=== PATIENT | female | born 1950 | race Caucasian/White ===

== ENCOUNTER 2016-11-24 19:17 | Emergency (ER) | payer BC ==
[~2016-11-24] VITALS: Ht 160 cm; Wt 90.7 kg
--- NOTE | ~2016-11-24 | CR63 ---
[facility] A Service of [facility] & [facility] RADIOLOGY TEXT RESULTS PATIENT: CANDIS HERNANDEZ LOCATION: CFTX : 54 UNIT #: [id number] AGE: [address]: ALEJANDRO WHITE APRN SEX: F ORDER DR: [id number] [facility] [address] [place], [place] [address] [id number] E MR#: [id number] Acc #: [id number] NAME: CANDIS HERNANDEZ. : 1950 SEX: F STUDY DATE/TIME: 11/24/2016 20:23 UNIT: [facility] ROOM: STUDY DESCRIPTION: CR Chest 2 View Attending Physician: Alejandro White Aprn Ordering Physician: Alejandro White Aprn Primary Care Physician: Dominik García Jr., M.D. MEDICAL IMAGING REPORT This report is preliminary unless electronic signature is present EXAM PA and lateral chest HISTORY Cough and shortness of air today. FINDINGS Mild chronic right basilar linear atelectasis or scarring, similar to 09/13/2016. Cardiac size and pulmonary vascularity are normal. No airspace infiltrates. No pleural effusions. IMPRESSION No acute findings and no evidence of active disease. Dictated by... Aaron Tristan M.D. THIS IS AN ELECTRONICALLY VERIFIED REPORT Aaron Tristan M.D. at 11/25/2016 11:44 PM DFL/psc TD: 11/25/2016 04:08 JOB #: [id number] MEDICAL IMAGING REPORT Page 1 of 1 COPY
[~2016-11-24 19:17] MED LIST: ALBUTEROL17 GM INH; ATIVAN0.5 MG PO; BENADRYL PO; BI-PAP; BROVANA15 MCG/2 M IH; BUDESONIDE0.5 MG/2 M IH; CIPRO PO; DIFLUCAN100 MG PO; DILANTIN PO; PREDNISOLONE5 MG PO; PREDNISONE PO; RESTASIS32 EA OP; SINGULAIR PO; ZANTAC PO
== END 2016-11-24 21:55 | disposition home or self-care (01) ==
LOC: CED 19:17 → CFTX 19:17
DX: J45.901 Unspecified asthma with (acute) exacerbation (principal); Z90.710 Acquired absence of both cervix and uterus; Z90.49 Acquired absence of other specified parts of digestive tract; Z88.8 Allergy status to other drugs, medicaments and biological substances; Z88.0 Allergy status to penicillin; Z88.5 Allergy status to narcotic agent; Z79.899 Other long term (current) drug therapy
CPT/HCPCS: 71020; 94640; 99285